=== PATIENT | female | born 1980 | race African-American/Black ===

== ENCOUNTER 2022-12-26 07:51 | Emergency (ER) | payer OTHER ==
[~2022-12-26] VITALS: Ht 162.6 cm; Wt 81.6 kg
[2022-12-26] MEDS ORDERED: NAPROSYN500 MG PO (08:54)
[2022-12-26] MEDS ORDERED: MEDROL4 M2 PO (08:56)
[2022-12-26] MEDS ORDERED: CYCLOBENZAPRINE10 MG PO (08:57)
== END 2022-12-26 09:17 | disposition home or self-care (01) ==
LOC: FSED 07:58
DX: S33.5XXA Sprain of ligaments of lumbar spine, initial encounter (principal); M79.671 Pain in right foot; X50.1XXA Overexertion from prolonged static or awkward postures, initial encounter; Y92.89 Other specified places as the place of occurrence of the external cause; F17.210 Nicotine dependence, cigarettes, uncomplicated
CPT/HCPCS: 80307; 81003; 99282